=== PATIENT | male | born 1945 | race Caucasian/White ===

== ENCOUNTER 2018-02-02 23:09 | Emergency (ER) | payer MEDICARE, BC, OTHER ==
[~2018-02-02] VITALS: Ht 182.9 cm; Wt 72.0 kg
[2018-02-02 23:47] LABS: BASOPHILS % (AUTO) 0.3 % (0-1); EOSINOPHILS % (AUTO) 0.9 % (0-6); HEMATOCRIT 43.2 % (42.0-52.0); HEMOGLOBIN 14.4 g/dl (14.0-17.9); LYMPHOCYTES # (AUTO) 0.7 X10'3 (1.1-4.8); LYMPHOCYTES % (AUTO) 22.2 % (21-51); MEAN CORPUSCULAR HEMOGLOBIN 28.5 PG (27.0-31.0); MEAN CORPUSCULAR HGB CONC 33.4 % (33.0-36.5); MEAN CORPUSCULAR VOLUME 85.3 FL (78-98); MEAN PLATELET VOLUME 7.6 FL (7.4-10.4); MONOCYTES # (AUTO) 0.3 X10'3 (0-0.9); MONOCYTES % (AUTO) 8.5 % (2-12); NEUTROPHILS # (AUTO) 2.3 X10'3 (1.8-7.7); NEUTROPHILS % (AUTO) 68.1 % (42-75); PLATELET COUNT 176 X10'3 (140-440); RED BLOOD COUNT 5.06 X10'6 (4.70-6.10); WHITE BLOOD COUNT 3.3 X10'3 (4.5-11.0)
[2018-02-02 23:55] LABS: ALANINE AMINOTRANSFERASE 24 U/L (12-78); ALBUMIN 3.8 G/DL (3.4-5.0); ALBUMIN/GLOBULIN RATIO 1.3 (1.1-1.5); ALKALINE PHOSPHATASE 91 IU/L (46-116); ANION GAP 9 (8-16); ASPARTATE AMINO TRANSFERASE 13 U/L (10-37); BILIRUBIN,TOTAL 0.3 MG/DL (0.1-1.0); BLOOD UREA NITROGEN 26 MG/DL (7-18); BUN/CREATININE RATIO 22.6 (5.4-32.0); CALCIUM 8.5 MG/DL (8.5-10.1); CHLORIDE 105 MMOL/L (99-107); CREATININE 1.15 MG/DL (0.60-1.10); GLUCOSE 155 MG/DL (70-104); POTASSIUM 3.9 MMOL/L (3.5-5.1); SODIUM 139 MMOL/L (135-145); TOTAL PROTEIN 6.8 G/DL (6.4-8.2); eGFR 63 ML/MIN
[2018-02-03 00:03] LABS: PROTHROMBIN TIME 10.8 SECONDS (9.0-12.0)
[2018-02-03 00:04] LABS: PARTIAL THROMBOPLASTIN TIME 26 SECONDS (22-32)
[2018-02-03 00:45] VITALS: BP 124/78
== END 2018-02-03 02:49 | disposition home or self-care (01) ==
LOC: ER 23:11
DX: R07.89 Other chest pain (principal)
CPT/HCPCS: 36415; 71045; 80053; 84484; 85025; 85610; 85730; 93005; 99285

== ENCOUNTER 2018-06-28 07:10 | Day surgery (SDC) | payer MEDICARE, BC, OTHER ==
[2018-06-26 16:36] LABS: CLARITY,URINE CLEAR (Clear); COLOR,URINE YELLOW (Yellow); GLUCOSE, URINE NEGATIVE (Neg); KETONES,URINE NEGATIVE (Neg); LEUKOCYTE ESTERASE ,URINE NEGATIVE (Neg); NITRITES, URINE NEGATIVE (Neg); OCCULT BLOOD,URINE MODERATE (Neg); PROTEIN,URINE NEGATIVE (Neg); UROBILINOGEN,URINE 0.2 E.U/dL (0.2-1.0)
[2018-06-26 16:37] LABS: UA COLLECTION TYPE CLN CATCH MIDSTREAM
[2018-06-26 16:41] LABS: BASOPHILS % (AUTO) 0.4 % (0-1); EOSINOPHILS % (AUTO) 1.2 % (0-6); LYMPHOCYTES # (AUTO) 0.8 X10'3 (1.1-4.8); LYMPHOCYTES % (AUTO) 21.4 % (21-51); MEAN CORPUSCULAR HEMOGLOBIN 27.9 PG (27.0-31.0); MEAN CORPUSCULAR VOLUME 84.4 FL (78-98); MEAN PLATELET VOLUME 7.7 FL (7.4-10.4); MONOCYTES # (AUTO) 0.4 X10'3 (0-0.9); NEUTROPHILS # (AUTO) 2.6 X10'3 (1.8-7.7); PRE OP HEMATOCRIT 43.1 % (42.0-52.0); PRE OP HEMOGLOBIN 14.2 g/dL (14.0-17.9); PRE OP PLATELET COUNT 159 X10'3 (140-440); RED BLOOD COUNT 5.11 X10'6 (4.70-6.10); RED CELL DISTRIBUTION WIDTH 14.4 % (11.5-14.5)
[2018-06-26 16:49] LABS: ALBUMIN 3.8 G/DL (3.4-5.0); ALBUMIN/GLOBULIN RATIO 1.3 (1.1-1.5); ALKALINE PHOSPHATASE 116 IU/L (46-116); BLOOD UREA NITROGEN 18 MG/DL (7-18); BUN/CREATININE RATIO 19.1 (5.4-32.0); CALCIUM 8.9 MG/DL (8.5-10.1); CHLORIDE 104 MMOL/L (99-107); CREATININE 0.94 MG/DL (0.60-1.10); PRE OP ALT 19 U/L (30-65); PRE OP ANION GAP 8 (8-16); PRE OP AST 13 U/L (10-37); PRE OP BILIRUB, TOTAL 0.3 MG/DL (0.0-1.0); PRE OP GLUCOSE 134 MG/DL (70-104); PRE OP POTASSIUM 3.8 MMOL/L (3.4-5.1); PRE OP SODIUM 139 MMOL/L (135-145); TOTAL CARBON DIOXIDE 26.9 MMOL/L (24-32); TOTAL PROTEIN 6.8 G/DL (6.4-8.2); eGFR 79 ML/MIN
[2018-06-26 17:30] LABS: MUCUS STRANDS MANY /LPF (Neg); SQUAMOUS EPITHELIAL CELL,UR NONE SEEN /LPF (FEW); TRANSITIONAL EPI CELLS,URINE FEW /HPF
[2018-06-26 17:31] LABS: BACTERIA,URINE NONE SEEN /HPF (Neg)
[2018-06-26 17:32] LABS: WBC,URINE 0-4 /HPF (0-4)
[2018-06-28] VITALS (20 sets, daily range): BP systolic 123–160; BP diastolic 74–109
[~2018-06-28] VITALS: Ht 182.9 cm; Wt 74.5 kg
[~2018-06-28 07:10] MED LIST: ACET-2615 PO; ESOM40CA54 PO; cefazolin/dext.iso 2gm/50ml 50 ML IV ONE; famotidine 20mg tablet PO ONE; ringers solution, lacted 1,000 ML IV SCH
[2018-06-28] MEDS ORDERED: ceFAZolin 1000mg inj ONE (09:00)
[2018-06-28] MEDS ORDERED: BUPIVAcaine/PF 2.5mg/ml (0.25%) 10ml vial ONE (09:00)
[2018-06-28] MEDS ORDERED: sevoflurane 250ml liquid IH ONE (09:21)
[2018-06-28] MEDS ORDERED: fentaNYL/PF 50MCG/1 ML 2ML syringe ONE (09:25)
[2018-06-28] MEDS ORDERED: midazolam 2 mg/2 ml injection ONE (09:25)
[2018-06-28] MEDS ORDERED: ondansetron/PF 4mg/2ml inj ONE (09:45)
[2018-06-28] MEDS ORDERED: rocuronium 10mg/ml inj IV ONE (09:45)
[2018-06-28] MEDS ORDERED: propofol inj 20 ML IV ONE (09:45)
[2018-06-28] MEDS ORDERED: dexamethasone sod phosphate 4mg/ml inj. ONE (09:45)
[2018-06-28] MEDS ORDERED: glycopyrrolate 0.2mg/ml inj ONE (10:17)
[2018-06-28] MEDS ORDERED: neostigmine methylsulfate 1 MG/ML 10ml vial ONE (10:17)
[2018-06-28] MEDS ORDERED: ringers solution, lacted 1,000 ML IV SCH (10:18)
[2018-06-28] MEDS ORDERED: proCHLORperazine 10 MG/2 ml inj IV PRN (10:20)
[2018-06-28] MEDS ORDERED: acetaminophen 1,000mg/100ml IV 100 ML IV PRN (10:20)
[2018-06-28] MEDS ORDERED: meperidine/PF 25mg/ml syringe IV PRN ×3 (10:20)
[2018-06-28] MEDS ORDERED: ondansetron/PF 4mg/2ml inj IV PRN (10:20)
[2018-06-28] MEDS ORDERED: ketorolac tromethamine 15mg/ml inj. IV ONE (10:20)
[2018-06-28] MEDS ORDERED: HYDROmorphone inj. 0.5 MG/0.5 ML DISP.SYRIN IV PRN ×2 (10:20)
--- NOTE | 2018-06-28 10:33 | NUR ---
Received from OR via [facility] , accompanied by Anesthesiologist DEVORAH and report given by Anesthesiolgist. PATIENT WITH 20G PIV IN RIGHT UE RUNNING LR AT 100. DENIES PAIN. 2 ABDOMINAL BANDAIDS PRESENT. NO DRAINAGE. Addendum: 06/28/18 at 1044 by Kit Nuñez RN, RN Amended: Links added.
--- NOTE | 2018-06-28 13:53 | NUR ---
Report called to receiving nurse. Transferred via [facility] WITH ALL Belongings . Special Issues communicated to receiving nurse TAY [email or web address]. STILL UNABLE TO VOID. Addendum: 06/28/18 at 1454 by Kit Nuñez RN, RN Amended: Links added.
--- NOTE | 2018-06-28 17:30 | NUR ---
PT WAS OBSERVED ON PAS FOR A FEW HOURS. DURING THIS TIME, HIS PAIN WAS WELL CONTROLLED, HE WAS TAKING PO FLUIDS WELL. AMBULATED AD DEEPALI THROUGH OUT THE UNIT. HE WAS UNABLE TO PASS URINE, A BLADDER SCAN SHOWED 322 ML. A F/C WAS PLACED WITH CLEAR YELLOW OUTPUT. TEACHING WAS DONE REGARDING CARE AND MAINTENANCE OF THE BRANCH. PT HAD A SMALL AREA OF SWELLING UNDER A TROCAR SITE. IT PALPATES SOFT. EDGES WERE MARKED WITH A PEN. PT AND HIS SAID THEY WANTED DR MUNOZ TO SEE IT AND OK DC. HE SAW THE AREA AND STATED PT OK FOR DC, HE IS AVAILABLE IF THEY NEED HIM. THEY ARE COMFORTABLE WITH THIS PLAN. DCD IN STABLE CONDITION, TO F/U WITH DR MUNOZ ON TUESDAY FOR BRANCH REMOVAL. TAKEN TO CAR VIA WC.
== END 2018-06-28 17:30 | disposition home or self-care (01) ==
LOC: PAS 07:10
PROVIDERS: ATTEND Surgery
DX: K40.20 Bilateral inguinal hernia, without obstruction or gangrene, not specified as recurrent (principal); K21.9 Gastro-esophageal reflux disease without esophagitis; K44.9 Diaphragmatic hernia without obstruction or gangrene; Z87.898 Personal history of other specified conditions; Z98.890 Other specified postprocedural states; Z88.8 Allergy status to other drugs, medicaments and biological substances; Z91.012 Allergy to eggs; Z79.899 Other long term (current) drug therapy
CPT/HCPCS: 36415; 49650; 80053; 81001; 82948; 85025; A6258; C1781; J0690; J1100; J1885; J2175; J2250; J2405; J2704; J2710; J3010; J3490; A4315; J7120

== ENCOUNTER 2022-07-16 08:01 | Day surgery (SDC) | payer MEDICARE, BC, OTHER ==
[~2022-07-16] VITALS: Ht 182.9 cm; Wt 82.1 kg
[2022-07-16] VITALS (8 sets, daily range): BP systolic 113–150; BP diastolic 63–102
[~2022-07-16 08:01] MED LIST changes: -cefazolin/dext.iso 2gm/50ml 50 ML IV ONE; -famotidine 20mg tablet PO ONE; -ringers solution, lacted 1,000 ML IV SCH
[2022-07-16] MEDS ORDERED: CHOL4POW4 PO (08:26)
[2022-07-16] MEDS ORDERED: ESOM20CA PO (08:26)
[2022-07-16] MEDS ORDERED: ATOR20TA66 PO (08:26)
[2022-07-16] MEDS ORDERED: CELE-85 PO (08:26)
[2022-07-16] MEDS ORDERED: TADA5TAB13 PO (08:26)
[2022-07-16] MEDS ORDERED: FLO0.4C PO (08:26)
[2022-07-16 08:48] LABS: BASOPHILS % (AUTO) 0.2 % (0-1); EOSINOPHILS % (AUTO) 0.5 % (0-6); HEMATOCRIT 45.9 % (42.0-52.0); LYMPHOCYTES # (AUTO) 0.7 X10'3 (1.1-4.8); LYMPHOCYTES % (AUTO) 11.9 % (21-51); MEAN CORPUSCULAR HEMOGLOBIN 30.8 PG (27.0-31.0); MEAN CORPUSCULAR HGB CONC 34.8 g/dL (33.0-36.5); MEAN CORPUSCULAR VOLUME 88.4 FL (78-98); MEAN PLATELET VOLUME 7.8 FL (7.4-10.4); MONOCYTES # (AUTO) 0.5 X10'3 (0-0.9); MONOCYTES % (AUTO) 9.3 % (2-12); NEUTROPHILS # (AUTO) 4.4 X10'3 (1.8-7.7); NEUTROPHILS % (AUTO) 78.1 % (42-75); PLATELET COUNT 126 X10'3 (140-440); RED BLOOD COUNT 5.19 X10'6 (4.70-6.10); RED CELL DISTRIBUTION WIDTH 13.9 % (11.5-14.5); WHITE BLOOD COUNT 5.6 X10'3 (4.5-11.0)
[2022-07-16 09:05] LABS: ALBUMIN 4.3 G/DL (3.4-5.0); ANION GAP 9 (8-16); BLOOD UREA NITROGEN 17 MG/DL (7-18); BUN/CREATININE RATIO 18.9 (10.0-20.0); CALCIUM 8.6 MG/DL (8.5-10.1); CHLORIDE 107 MMOL/L (99-107); GLUCOSE 123 MG/DL (70-104); MAGNESIUM 2.2 MG/DL (1.5-2.4); SODIUM 141 MMOL/L (135-145); TOTAL CARBON DIOXIDE 25.2 MMOL/L (24-32); eGFR 82 ML/MIN
[2022-07-16] MEDS ORDERED: cefazolin 2gm/D5W 100mL 100 ML IV ONE (09:15)
[2022-07-16] MEDS ORDERED: vancomycin 1,000mg inj ONE (10:19)
[2022-07-16] MEDS ORDERED: LIDOCAINE 2%/EPI 1:100,000 inj. Multi-dose 20 ML VIAL ONE (10:19)
[2022-07-16] MEDS ORDERED: midazolam 1 mg/ML 2ml injection ONE ×2 (10:19→11:04)
[2022-07-16] MEDS ORDERED: fentaNYL/PF 50MCG/1 ML 2ML syringe ONE (10:19)
[2022-07-16] MEDS ORDERED: FLU VACC QS2022-23(6MOS UP)/PF 60 MCG/0.5 ML SYRINGE IMVAC ONE (10:20)
[2022-07-16] MEDS ORDERED: normal saline 1000ml 1,000 ML IV SCH (12:15)
[2022-07-16] MEDS ORDERED: HYDROcodone/acetaminophen 10/325mg tab PO PRN (12:15)
[2022-07-16] MEDS ORDERED: HYDROcodone/acetaminophen 5mg/325mg tablet PO PRN (12:15)
== END 2022-07-16 15:00 | disposition home or self-care (01) ==
LOC: SSTAY O 08:01
PROVIDERS: ATTEND Internal Medicine Cardiovascular Disease
DX: I44.1 Atrioventricular block, second degree (principal); E78.5 Hyperlipidemia, unspecified; M19.90 Unspecified osteoarthritis, unspecified site; K21.9 Gastro-esophageal reflux disease without esophagitis; N40.0 Benign prostatic hyperplasia without lower urinary tract symptoms; N18.9 Chronic kidney disease, unspecified; Z23 Encounter for immunization; Z79.01 Long term (current) use of anticoagulants; Z79.899 Other long term (current) drug therapy; Z88.5 Allergy status to narcotic agent; Z88.8 Allergy status to other drugs, medicaments and biological substances; Z91.018 Allergy to other foods; Z87.01 Personal history of pneumonia (recurrent); Z87.440 Personal history of urinary (tract) infections; Z85.828 Personal history of other malignant neoplasm of skin; Z90.49 Acquired absence of other specified parts of digestive tract; Z98.890 Other specified postprocedural states; Z86.16 Personal history of COVID-19
CPT/HCPCS: 33208; 36415; 71045; 80048; 83735; 85025; 85610; 90686; 93005; 99152; 99153; C1785; C1898; G0008; J2250; J3010; J3370; J7030; A4565; A6258